=== PATIENT | male | born 1970 | race Caucasian/White ===

== ENCOUNTER → 2021-08-01 | Outpatient (CLI) | payer OTHER ==
--- NOTE | 2021-08-01 10:31 | Diagnostic Imaging Report ---
INDICATION: NICOLE THUMB PAIN PAIN IN RT AND LT FINGERS COMPARISON: None. FINDINGS: Multiple radiographic views of the bilateral hands were obtained and show no fractures, dislocations, or other acute bony abnormalities. Joint spaces are well maintained throughout. The soft tissues appear unremarkable. No radiopaque foreign bodies are identified. IMPRESSION: Unremarkable radiographic exam of the bilateral hands. Dictated by: Dictated on workstation # [id number]
--- NOTE | 2021-08-01 11:23 | Diagnostic Imaging Report ---
INDICATION: Locking sensation of the shoulder. Pain EXAMINATION: Left shoulder 08/01/2021 FINDINGS: 3 views of the shoulder. There is narrowing and spurring within the acromioclavicular joint. Narrowing and spurring at the glenohumeral joint space is also noted. There is sclerosis at the greater tuberosity consistent with rotator cuff tendinopathy. Linear densities medial to the proximal humerus possibly loose bodies along the biceps tendon sheath. There are no fractures or dislocations. The visualized lung clear. IMPRESSION: 1. Diffuse degenerative findings with changes suggesting rotator cuff tendinopathy. Dictated by: Dictated on workstation # [id number]
== END ==
LOC: ORTHO 08:54
PROVIDERS: ATTEND Orthopaedic Surgery
DX: M19.012 Primary osteoarthritis, left shoulder (principal)
CPT/HCPCS: 73030; 73130; G0463; 99213